=== PATIENT | male | born 1995 | race African-American/Black ===

== ENCOUNTER 2016-06-29 15:41 | Emergency (ER) | payer OTHER ==
[~2016-06-29] VITALS: Ht 180.3 cm; Wt 81.6 kg
[~2016-06-29 15:41] MED LIST: CLINDAMYCIN HC300 MG PO; IBUPROFEN200 M2 PO; VICO75300 PO; VISTARIL50 MG PO
[2016-06-29] MEDS ORDERED: NAPROSYN500 MG PO (17:22)
== END 2016-06-29 17:50 | disposition home or self-care (01) ==
LOC: ED 15:41
DX: S86.912A Strain of unspecified muscle(s) and tendon(s) at lower leg level, left leg, initial encounter (principal); F17.200 Nicotine dependence, unspecified, uncomplicated; Z91.013 Allergy to seafood; X58.XXXA Exposure to other specified factors, initial encounter; Y93.89 Activity, other specified; Y92.89 Other specified places as the place of occurrence of the external cause; Y99.9 Unspecified external cause status

== ENCOUNTER 2017-11-03 20:09 | Inpatient (IN) | payer SELFPAY ==
[~2017-11-03] VITALS: Ht 180.3 cm; Wt 70.4 kg
--- NOTE | ~2017-11-03 | EKG ---
[place], [place] ELECTROCARDIOGRAM REPORT NAME: DRAKE CARSON UNIT #: [id number] ROOM: 510 DOCTOR: RICHI DRAFT REPORT BIRTHDATE: [birth year] [facility] Test Date: 2017-11-03 Test Time: 22:04:18 Pat Name: DRAKE CARSON Department: ER Room: 1 Gender: M [employer] Supervisor: Nash Carrillo : 1995 Requested By: SHIMA BROCK Order Number: [id number] Reading MD: Gene Arevalo MD Measurements Intervals Muse Rate: 117 P: 72 TN: 158 QRS: 94 QRSD: 82 T: 9 QT: 339 QTc: 473 Interpretive Statements Sinus tachycardia Biatrial enlargement Borderline right axis deviation ST elev, probable normal early repol pattern Borderline prolonged QT interval Electronically Signed On 11-05-2017 8:42:13 PDT by Gene Arevalo MD CM:EKGRPT:ELECTROCARDIOGRAM REPORT [id number] SHIMA DAVIS DRAFT REPORT SHIMA BROCK DO
[2017-11-03 00:41] VITALS: BP 122/80
[~2017-11-03 20:09] MED LIST changes: +NAPROSYN500 MG PO
[2017-11-03 20:16] VITALS: BP 126/82
[2017-11-03 20:43] LABS: HEMATOCRIT 45.8 % (42.0-52.0); HEMOGLOBIN 15.6 g/dl (14.0-18.0); MEAN CELL VOLUME 89.3 fl (80.0-94.0); MEAN CORPUSCULAR HGB 30.4 pg (27.0-31.0); MEAN CORPUSCULAR HGB CONC 34.1 g/dl (33.0-37.0); MEAN PLATELET VOLUME 11.2 fl (9.6-12.3); PLATELET COUNT AUTOMATED 197 10*3/uL (130-400); RED BLOOD COUNT 5.13 10*6/uL (4.50-5.90); RED CELL DISTRI WIDTH 13.9 % (0-14.5)
[2017-11-03 20:45] VITALS: BP 132/82
[2017-11-03 21:01] LABS: ALBUMIN 3.8 gm/dl (3.1-4.5); ALKALINE PHOSPHATASE 72 U/L (45-117); BUN 6 mg/dl (7-24); CHLORIDE 102 mmol/L (98-107); CREATININE 1.48 mg/dL (0.70-1.30); POTASSIUM 3.3 mmol/L (3.5-5.1); SGOT/AST 79 IU/L (3-35); SGPT/ALT 83 U/L (12-78); SODIUM 137 mmol/L (136-145); TOTAL PROTEIN 8.5 gm/dL (6.4-8.2)
[2017-11-03 21:26] LABS: URINE AMPHETAMINES < 1000 (1000ng/ml); URINE BARBITURATES < 200 (200ng/ml); URINE BENZODIAZEPINES < 200 (200ng/ml); URINE CANNABINOIDS (THC) > 50 (50ng/ml); URINE COCAINE > 300 (300ng/ml); URINE METHADONE < 300 (300ng/ml); URINE OPIATES < 300 (300ng/ml); URINE PHENCYCLIDINE < 25 (25ng/ml)
[2017-11-03 21:28] LABS: CPK 1165 U/L (39-308)
[2017-11-03 21:30] LABS: BASOPHILS 2 % (0-1); TOTAL CELLS COUNTED 100 #CELLS
[2017-11-03 21:33] LABS: PLATELET SUFFICIENCY NORMAL (NORMAL); STOMATOCYTE FEW
[2017-11-03 21:40] VITALS: BP 134/69
[2017-11-03 22:30] VITALS: BP 152/69
[2017-11-03 23:25] VITALS: BP 164/95
[2017-11-04 06:17] LABS: HEMOGLOBIN 14.3 g/dl (14.0-18.0); MEAN CORPUSCULAR HGB 30.3 pg (27.0-31.0); MEAN PLATELET VOLUME 11.4 fl (9.6-12.3); PLATELET COUNT AUTOMATED 185 10*3/uL (130-400); RED BLOOD COUNT 4.72 10*6/uL (4.50-5.90); WHITE BLOOD COUNT 7.4 10*3/uL (4.8-10.8)
[2017-11-04 06:47] LABS: ALBUMIN 3.2 gm/dl (3.1-4.5); BUN 4 mg/dl (7-24); CHLORIDE 107 mmol/L (98-107); CREATININE 0.82 mg/dL (0.70-1.30); PHOSPHOROUS 2.6 mg/dL (2.5-4.9); POTASSIUM 3.4 mmol/L (3.5-5.1); SGOT/AST 68 IU/L (3-35); SGPT/ALT 67 U/L (12-78); SODIUM 138 mmol/L (136-145); TOTAL PROTEIN 6.9 gm/dL (6.4-8.2)
[2017-11-04 07:00] LABS: ALKALINE PHOSPHATASE 62 U/L (45-117)
[2017-11-04 07:01] LABS: CPK 1943 U/L (39-308)
[2017-11-04 07:02] LABS: PLATELET SUFFICIENCY NORMAL (NORMAL); TOTAL CELLS COUNTED 100 #CELLS
[2017-11-04 08:00] VITALS: BP 138/96
[2017-11-04 12:00] VITALS: BP 154/97
[2017-11-04 16:00] VITALS: BP 146/90
[2017-11-04 20:00] VITALS: BP 155/90
[2017-11-05] VITALS: BP 145/92
[2017-11-05 07:23] LABS: BUN 4 mg/dl (7-24); CHLORIDE 109 mmol/L (98-107); CREATININE 0.78 mg/dL (0.70-1.30); POTASSIUM 3.7 mmol/L (3.5-5.1); SODIUM 141 mmol/L (136-145)
[2017-11-05 07:35] LABS: CPK 2243 U/L (39-308)
[2017-11-05 08:00] VITALS: BP 140/81
[2017-11-05] MEDS ORDERED: ACETAMINOPHEN325 M2 PO (10:19)
== END 2017-11-05 11:00 | DRG 682 ==
LOC: ED 20:09 → 5E 22:34 → EDHOLD 22:34 → 5E 22:44
PROVIDERS: Internal Medicine; Student in an Organized Health Care Education/Training Program
PROC: 0HQBXZZ Repair Right Upper Arm Skin, External Approach (ICD-10-PCS; principal; 2017-11-03)
DX: N17.0 Acute kidney failure with tubular necrosis (principal); R65.11 Systemic inflammatory response syndrome (SIRS) of non-infectious origin with acute organ dysfunction; T79.6XXA Traumatic ischemia of muscle, initial encounter; D72.829 Elevated white blood cell count, unspecified; E87.6 Hypokalemia; R74.0 Nonspecific elevation of levels of transaminase and lactic acid dehydrogenase [LDH]; R00.0 Tachycardia, unspecified; F14.10 Cocaine abuse, uncomplicated; F12.10 Cannabis abuse, uncomplicated; F10.120 Alcohol abuse with intoxication, uncomplicated; W18.39XA Other fall on same level, initial encounter; S41.152A Open bite of left upper arm, initial encounter; S41.151A Open bite of right upper arm, initial encounter; S81.852A Open bite, left lower leg, initial encounter; S81.851A Open bite, right lower leg, initial encounter; Y93.02 Activity, running; Y92.89 Other specified places as the place of occurrence of the external cause; W54.0XXA Bitten by dog, initial encounter; Z71.6 Tobacco abuse counseling; Z72.0 Tobacco use; Z91.013 Allergy to seafood; Z82.5 Family history of asthma and other chronic lower respiratory diseases; Z79.899 Other long term (current) drug therapy; Y99.8 Other external cause status

== ENCOUNTER 2018-11-06 17:49 | Emergency (ER) | payer SELFPAY ==
[~2018-11-06] VITALS: Ht 182.8 cm; Wt 79.4 kg
[~2018-11-06 17:49] MED LIST changes: +ACETAMINOPHEN325 M2 PO
[2018-11-06 18:26] LABS: BILIRUBIN 1+ (NEGATIVE); BLOOD NEGATIVE (NEGATIVE); CLARITY CLEAR (CLEAR); COLOR YELLOW (YELLOW); GLUCOSE NEGATIVE (NEGATIVE); KETONE TRACE (NEGATIVE); LEUKO ESTERASE NEGATIVE (NEGATIVE); NITRITE NEGATIVE (NEGATIVE); PH 6.5 (5.0-9.0)
[2018-11-06 18:44] LABS: EPITHELIAL CELLS 0-2
[2018-11-07 22:04] LABS: GONOCOCCUS BY NAA Negative (Negative)
== END 2018-11-06 19:42 | disposition home or self-care (01) ==
LOC: ED 17:49
PROVIDERS: Physician Assistant
DX: R11.2 Nausea with vomiting, unspecified (principal); R19.7 Diarrhea, unspecified; R21 Rash and other nonspecific skin eruption; F12.10 Cannabis abuse, uncomplicated; F17.200 Nicotine dependence, unspecified, uncomplicated; F14.10 Cocaine abuse, uncomplicated; Z91.013 Allergy to seafood